=== PATIENT | female | born 1960 | race Caucasian/White ===

== ENCOUNTER → 2017-08-03 | Outpatient (CLI) | payer OTHER ==
[~2017-08-03] MED LIST: ANTIHISTAMINE; CPR500 PO; [UNRECOGNIZED DRUG - REMARK]
--- NOTE | 2017-08-05 08:13 | MAMMOGRAPHY REPORT ---
BILATERAL DIGITAL SCREENING MAMMOGRAM TOMOSYNTHESIS WITH CAD: 08/03/2017 CLINICAL HISTORY: Routine screening. Patient has no complaints. TECHNIQUE: Breast tomosynthesis in addition to standard 2D mammography was performed. Current study was also evaluated with a Computer Aided Detection (CAD) system. COMPARISON: Comparison is made to exams dated: 07/04/2007, 12/29/2006, and 12/29/2006. BREAST COMPOSITION: There are scattered areas of fibroglandular density in both breasts. FINDINGS: No suspicious mass, architectural distortion or cluster of microcalcifications is seen. IMPRESSION: ACR BI-RADS CATEGORY 1: NEGATIVE There is no mammographic evidence of malignancy bilaterally. Prior outside mammograms are currently being requested and if obtained they will be reviewed, compared to the current exam to assess for any more subtle changes, and an addendum will be made to this report. Otherwise, a 1 year screening taras mogram is recommended. The patient will receive written notification of the results. Approximately 10% of breast cancers are not detected with mammography. A negative mammographic report should not delay biopsy if a clinically suggestive mass is present. Luisana Juarez M.D. ay/:08/03/2017 15:37:03 [place] Mate: Hermila Granado, [facility] letter sent: Normal 1/2 BI-RADS Code: ACR BI-RADS Category 1: Negative
== END | disposition home or self-care (01) ==
LOC: C.MAMM 14:14
PROVIDERS: ATTEND Neuromusculoskeletal Medicine & OMM
DX: Z12.31 Encounter for screening mammogram for malignant neoplasm of breast (principal)

== ENCOUNTER 2017-08-10 14:04 | Emergency (ER) | payer OTHER ==
[~2017-08-10] VITALS: Ht 162.6 cm; Wt 97.0 kg
[2017-08-10 14:11] VITALS: TEMP 36.7; Ht 162.6 cm; Wt 97.0 kg
[2017-08-10] MEDS ORDERED: PROCHLORPERAZINE 5 MG/ML 2 ML VIAL IV STA (14:40)
[2017-08-10] MEDS ORDERED: DiphenhydrAMINE HCL 50 MG/ML VIAL IV STA (14:40)
[2017-08-10] MEDS ORDERED: OPTIRAY 320 IV PRN (14:45)
[2017-08-10 15:21] LABS: BASO % 0.4 %; BASO ABS # 0.04 K/uL (0-0.2); COMPLETE YES; HEMATOCRIT 44.1 % (37-47); IG% 0.2 %; LYMPH % 23.8 %; LYMPH ABS # 2.14 K/uL (1.2-3.4); MEAN CELL VOLUME 89.5 fL (80-100); MEAN CORPUSCULAR HEMOGLOBIN 30.4 pg (25-34); MEAN PLATELET VOLUME 10.9 fL (7.4-10.4); MONO % 7.2 %; NEUT % 67.4 %; PLATELET COUNT 253 K/uL (130-400); RED BLOOD COUNT 4.93 M/uL (4.2-5.4)
[2017-08-10 15:29] LABS: PROTHROMBIN TIME (PATIENT) 10.9 SECONDS (9.0-12.0)
[2017-08-10 15:39] LABS: BUN/CREATININE RATIO 12.6 (10-20); CALCIUM 9.1 mg/dl (8.5-10.1); CREATININE 0.84 mg/dl (0.60-1.20); POTASSIUM 4.1 mmol/L (3.5-5.1)
[2017-08-10] MEDS ORDERED: DEXAMETHASONE SOD INJ 4 MG/ML VIAL IV STA (16:50)
--- NOTE | 2017-08-10 17:12 | DIAGNOSTIC IMAGING REPORT ---
ANGIOGRAPHY HEAD COMBO CLINICAL HISTORY: 56 years-old Female presents with acute headache. COMPARISON STUDY: CT head 05/01/2009 TECHNIQUE: Unenhanced axial CT scan of the brain is performed. Subsequently, following the IV administration of 115 cc of Optiray 320, CT angiogram of the brain was performed from the skull base to the vertex. Images are reviewed in the axial, sagittal, and coronal planes. 3-D MIPS images are created and assessed. IV contrast was administered without complication. A dose lowering technique was utilized adhering to the principles of ALARA. The first set of images demonstrates suboptimal contrast opacification secondary to malfunction with the patient's IV. The exam was then repeated. CT DOSE: 796.98 mGy.cm FINDINGS: CT BRAIN: There is a large intra-axial mass of the right frontal lobe, 5.4 x 4.8 x 4.1 cm in AP, transverse and cranial caudal dimensions respectively nicely seen on image 170 of series 7. This demonstrates avid heterogeneous enhancement with prominent central neovascularity as seen on image 171 series 7. Large amount of surrounding vasogenic edema is also noted. There is 10 mm leftward midline shift with subfalcine herniation. There is partial effacement of the frontal horn, body and atria of the right lateral ventricle. No hydrocephalus. Suprasellar cistern is maintained. No acute intracranial hemorrhage or territorial ischemia identified. No calvarial fracture. Mastoid air cells and middle ear cavities are clear. Moderate ethmoid sinus disease. Soft tissues are unremarkable. Orbits are symmetric. CT ANGIOGRAM OF THE BRAIN: The imaged bilateral internal carotid arteries are patent. The bilateral anterior and middle cerebral arteries are also patent. The vertebrobasilar system and posterior cerebral arteries are widely patent. There is no aneurysm, high-grade stenosis, or proximal branch occlusion identified. Dural sinuses appear patent. IMPRESSION: Large intra-axial heterogeneously enhancing mass of the right frontal lobe measures up to 5.4 cm is present with associated extensive amount of surrounding vasogenic edema resulting in subfalcine herniation with 10 mm leftward midline shift. Mass partially effaces the right frontal horn, body and atria of the right lateral ventricle. No hydrocephalus or hemorrhage. Further evaluation with contrast-enhanced brain MRI and neurosurgical consultation recommended. The above report was generated using voice recognition software. It may contain grammatical, syntax or spelling errors. Electronically signed by: Harjinder Davila M.D. 08/10/2017 5:11 PM Dictated Date/Time: 08/10/2017 5:02 PM
[2017-08-10] MEDS ORDERED: LEVETIRACETAM IV 1,000 MG in DEXTROSE 5% 100ML 100 ML IV ONE (18:15)
--- NOTE | 2017-08-10 18:48 | EMERGENCY ROOM VISIT NOTE ---
History Report prepared by Jhonatan: Lena Robledo Under the Supervision of: Dr. Jeancarlos Liu M.D. First contact with patient: 14:30 Chief Complaint: HEADACHE Stated Complaint: HEADACHE History of Present Illness The patient is a 56 year old female who presents to the Emergency Room with complaints of a waxing and waning headache for over a month. The patient states that she wakes up every morning with a headache that improves throughout the day. Her pain is located behind her eyes. She rates her current pain as a 4/10 in severity. Her symptoms are not worsened with movement or changing positions. The patient denies any personal of family history of migraines. She denies any recent trauma or injury to her head. She denies recent falls. She denies numbness, weakness, fevers, changes in vision, nausea, and vomiting. Per , the patient has been under a lot of stress at work lately. The patient states that she has been moving slower and having a hard time focusing on things. She has also been "making dumb mistakes" like forgetting to turn the stove off or the water off. The patient went to [employer] today and was advised to come to the ED for further evaluation. Source of History: patient, spouse/significant other Onset: over 1 month ago Position: head Symptom Intensity: 4/10 Timing: waxes/wanes Modifying Factors (Worsening): other (worse in the morning) Modifying Factors (Relieving): other (improves throughout the day) Associated Symptoms: No fevers, No nausea, No vomiting, No weakness, No numbness Review of Systems See HPI for pertinent positives & negatives. A total of 10 systems reviewed and were otherwise negative. Past Medical & Surgical Medical Problems: (1) Asthma Surgical Problems: (1) History of tubal ligation Family History Cancer Diabetes mellitus FHx: gallbladder disease Heart disease Hypertension Lung disease Social History Smoking Status: Never Smoker Smokeless Tobacco Use: No Alcohol Use: occasionally Marital Status: Housing Status: lives with significant other Occupation Status: employed Allergies Coded Allergies: No Known Allergies (Unverified , /, 08/10/17) Physical Exam Vital Signs Date Time Temp Pulse Resp B/P (MAP) Pulse Ox O2 Delivery O2 Flow Rate FiO2 08/10/17 18:05 67 20 184/105 99 Room Air 08/10/17 17:14 69 08/10/17 17:05 59 20 199/71 96 Room Air 08/10/17 14:11 36.7 71 20 164/86 98 Room Air Physical Exam Constitutional: Vital signs reviewed. Eyes: Pupils are equal round reactive to light. Conjunctiva are noninjected. ENT: Pharynx is clear without erythema or exudate. Mucous membranes are moist. Neck supple without meningeal signs. Respiratory: Clear to auscultation bilaterally. Breath sounds are equal bilaterally. Cardiovascular: Regular rate and rhythm. No rubs or gallops. GI: Soft, nondistended and nontender. Bowel sounds are present. Musculoskeletal: No peripheral edema. No lower extremity tenderness. Integumentary: No cyanosis. Neurological: The patient is awake and alert. Cranial nerves II-XII are intact. Motor is 5 out of 5 all extremities. Sensation is intact to light touch all extremities. Normal speech. No pronator drift. Psychiatric: Normal affect. Medical Decision & Procedures ER Provider Diagnostic Interpretation: Radiology results as stated below per my review and the radiologist's interpretation: ANGIOGRAPHY HEAD COMBO CLINICAL HISTORY: 56 years-old Female presents with acute headache. COMPARISON STUDY: CT head 05/01/2009 TECHNIQUE: Unenhanced axial CT scan of the brain is performed. Subsequently, following the IV administration of 115 cc of Optiray 320, CT angiogram of the brain was performed from the skull base to the vertex. Images are reviewed in the axial, sagittal, and coronal planes. 3-D MIPS images are created and assessed. IV contrast was administered without complication. A dose lowering technique was utilized adhering to the principles of ALARA. The first set of images demonstrates suboptimal contrast opacification secondary to malfunction with the patient's IV. The exam was then repeated. CT DOSE: 796.98 mGy.cm FINDINGS: CT BRAIN: There is a large intra-axial mass of the right frontal lobe, 5.4 x 4.8 x 4.1 cm in AP, transverse and cranial caudal dimensions respectively nicely seen on image 170 of series 7. This demonstrates avid heterogeneous enhancement with prominent central neovascularity as seen on image 171 series 7. Large amount of surrounding vasogenic edema is also noted. There is 10 mm leftward midline shift with subfalcine herniation. There is partial effacement of the frontal horn, body and atria of the right lateral ventricle. No hydrocephalus. Suprasellar cistern is maintained. No acute intracranial hemorrhage or territorial ischemia identified. No calvarial fracture. Mastoid air cells and middle ear cavities are clear. Moderate ethmoid sinus disease. Soft tissues are unremarkable. Orbits are symmetric. CT ANGIOGRAM OF THE BRAIN: The imaged bilateral internal carotid arteries are patent. The bilateral anterior and middle cerebral arteries are also patent. The vertebrobasilar system and posterior cerebral arteries are widely patent. There is no aneurysm, high-grade stenosis, or proximal branch occlusion identified. Dural sinuses appear patent. IMPRESSION: Large intra-axial heterogeneously enhancing mass of the right frontal lobe measures up to 5.4 cm is present with associated extensive amount of surrounding vasogenic edema resulting in subfalcine herniation with 10 mm leftward midline shift. Mass partially effaces the right frontal horn, body and atria of the right lateral ventricle. No hydrocephalus or hemorrhage. Further evaluation with contrast-enhanced brain MRI and neurosurgical consultation recommended. The above report was generated using voice recognition software. It may contain grammatical, syntax or spelling errors. Electronically signed by: Harjinder Davila M.D. 08/10/2017 5:11 PM Dictated Date/Time: 08/10/2017 5:02 PM Laboratory Results 08/10/17 15:00 Red Blood Count 4.93, Mean Corpuscular Volume 89.5, Mean Corpuscular Hemoglobin 30.4, Mean Corpuscular Hemoglobin Concent 34.0, Mean Platelet Volume 10.9, Neutrophils (%) (Auto) 67.4, Lymphocytes (%) (Auto) 23.8, Monocytes (%) (Auto) 7.2, Eosinophils (%) (Auto) 1.0, Basophils (%) (Auto) 0.4, Neutrophils # (Auto) 6.06, Lymphocytes # (Auto) 2.14, Monocytes # (Auto) 0.65, Eosinophils # (Auto) 0.09, Basophils # (Auto) 0.04 08/10/17 15:00 Test 08/10/17 15:00 White Blood Count 9.00 K/uL (4.8-10.8) Red Blood Count 4.93 M/uL (4.2-5.4) Hemoglobin 15.0 g/dL (12.0-16.0) Hematocrit 44.1 % (37-47) Mean Corpuscular Volume 89.5 fL (80-100) Mean Corpuscular Hemoglobin 30.4 pg (25-34) Mean Corpuscular Hemoglobin Concent 34.0 g/dl (32-36) Platelet Count 253 K/uL (130-400) Mean Platelet Volume 10.9 fL (7.4-10.4) Neutrophils (%) (Auto) 67.4 % Lymphocytes (%) (Auto) 23.8 % Monocytes (%) (Auto) 7.2 % Eosinophils (%) (Auto) 1.0 % Basophils (%) (Auto) 0.4 % Neutrophils # (Auto) 6.06 K/uL (1.4-6.5) Lymphocytes # (Auto) 2.14 K/uL (1.2-3.4) Monocytes # (Auto) 0.65 K/uL (0.11-0.59) Eosinophils # (Auto) 0.09 K/uL (0-0.5) Basophils # (Auto) 0.04 K/uL (0-0.2) RDW Standard Deviation 47.2 fL (36.4-46.3) RDW Coefficient of Variation 14.3 % (11.5-14.5) Immature Granulocyte % (Auto) 0.2 % Immature Granulocyte # (Auto) 0.02 K/uL (0.00-0.02) Prothrombin Time 10.9 SECONDS (9.0-12.0) Prothromb Time International Ratio 1.0 (0.9-1.1) Activated Partial Thromboplast Time 25.8 SECONDS (21.0-31.0) Partial Thromboplastin Ratio 1.0 Anion Gap 5.0 mmol/L (3-11) Est Creatinine Clear Calc Drug Dose 86.6 ml/min Estimated GFR () 91.3 Estimated GFR (Non- 78.8 BUN/Creatinine Ratio 12.6 (10-20) Calcium Level 9.1 mg/dl (8.5-10.1) Laboratory results as reviewed by me. Medications Administered Medications (Trade) Dose Ordered Sig/Davon Route Start Time Stop Time Status Last Admin Dose Admin Prochlorperazine Edisylate (Compazine Inj) 10 mg NOW STAT IV 08/10/17 14:40 08/10/17 14:43 DC 08/10/17 15:25 10 MG Diphenhydramine HCl (Benadryl Inj) 50 mg NOW STAT IV 08/10/17 14:40 08/10/17 14:43 DC 08/10/17 15:25 50 MG Dexamethasone Sodium Phosphate (Decadron Inj) 10 mg NOW STAT IV 08/10/17 16:50 08/10/17 16:52 DC 08/10/17 17:18 10 MG Levetiracetam 1000 mg/Dextrose 110 ml @ 440 mls/hr ONE ONCE IV 08/10/17 18:15 08/10/17 18:29 DC 08/10/17 18:29 440 MLS/HR ED Course 1430: The patient was evaluated in room C3. A complete history and physical exam was performed. 1440: Benadryl 50 mg IV, Compazine 10 mg IV 1650: Decadron 10 mg IV 1706: The patient is resting comfortably and states that her headache has significantly approved at this time. 1804: I discussed the patient's case with her and her family. They verbalized agreement and understanding of the treatment plan. The patient will be transferred to the [place] [facility]. 1815: Ordered Levetiracetam 1000 mg/Dextrose 110 mL @ 440 mL/hr IV. 1830: I spoke with the transfer team. An ambulance will not be available for several hours. A helicopter has been contacted and will transfer the patient to the [place] ED. Medical Decision This is a 56-year-old female who presents with a headache. Differential diagnosis includes intracranial mass, intracranial hemorrhage, migraine headache , tension headache, aneurysm. I did perform a limited focused review of portions of the patient's old chart on the electronic medical record. The patient has had no recent pertinent visits to this hospital. I did evaluate the patient as noted above. IV access was established. I did treat the patient with IV Benadryl and Compazine. I did order and review the patient's blood work as noted in the electronic medical record. Her white blood cell count is not elevated. Her renal function is unremarkable. I did order a CT angiogram of the brain. I did review the images myself as well as the radiology report as described above. The patient does have a large mass in the right frontal region with significant edema causing subfalcine herniation and mass effect. I did immediately treat patient with Decadron 10 mg IV. Head of the bed was kept at 30 I did talk to the neurosurgeon rehabilitation worker at [facility] as a patient has [facility]. The neurosurgeon recommended that the patient receive 1000 mg of Keppra and be transferred as soon as possible due to the herniation. I did attempt to get an ALS ambulance but they were not available for over an hour and so I arranged for helicopter transfer. The patient was transferred via helicopter in stable condition. Medication Reconcilliation Current Medication List: was personally reviewed by me Blood Pressure Screening Patient's blood pressure: Elevated blood pressure Blood pressure disposition: Referred to PCP Consults Time Called: 1753 Consulting Physician: Dr. Barcenas -[facility] Returned Call: [phone] Barcenas of [facility]. We discussed the patient and her results. The patient will be transferred to the [place] ED. Dr. Barcenas also recommends giving the patient 1000 mg of Keppra. Impression Primary Impression: Brain mass Additional Impression: Brain herniation Critical Care I have personally spent 35 minutes of critical care time in the direct management of this patient. This includes bedside care, interpretation of diagnostic studies, and testing, discussion with consultants, patient, and family members, and other required patient management activities. This 30 minutes is in excess of all separately billable procedures. Scribe Attestation The scribe's documentation has been prepared under my direct and personally reviewed by me in its entirety. I confirm that the note above accurately reflects all work, treatment, procedures, and medical decision making performed by me. Departure Information Dispostion Transfer Acute Care Facility ([place] by air) Referrals Abilio Robbins D.OErik (PCP) Patient Instructions [facility] Problem Qualifiers
[2017-08-10 18:55] VITALS: BP 184/104; PULSE 76; O2SAT 98
== END 2017-08-10 18:55 | disposition short-term general hospital (02) ==
LOC: C.EDB 14:06 → C.EDC 18:55
DX: G93.5 Compression of brain (principal); J45.909 Unspecified asthma, uncomplicated; Z98.51 Tubal ligation status; Z80.9 Family history of malignant neoplasm, unspecified; Z83.3 Family history of diabetes mellitus; Z82.49 Family history of ischemic heart disease and other diseases of the circulatory system

== ENCOUNTER → 2017-09-22 | Outpatient (CLI) | payer OTHER ==
[~2017-09-22] MED LIST changes: -ANTIHISTAMINE; -CPR500 PO; +LEVE250T PO; +ONDA8TAB6 PO; +PROC1TAB5 PO; +TEMODAR; -[UNRECOGNIZED DRUG - REMARK]
== END | disposition home or self-care (01) ==
LOC: C.FOODA 09:49
PROVIDERS: ATTEND Internal Medicine Hematology
DX: C71.9 Malignant neoplasm of brain, unspecified (principal)

== ENCOUNTER → 2017-11-23 | Outpatient (CLI) | payer OTHER ==
[~2017-11-23] MED LIST changes: -LEVE250T PO; +ONDA-170 PO; -ONDA8TAB6 PO; +SULF800T23 PO; +TEMO1CAP5 PO; -TEMODAR
[2017-11-23 13:34] VITALS: BP 156/90; PULSE 61; TEMP 36.5; O2SAT 99
--- NOTE | 2017-11-23 14:49 | Radiation Oncology Follow-Up ---
Radiation Oncology Follow-Up Date of Visit Nov 23, 2017. Reason For Visit One-month follow-up Radiation Completion Date 10/25/17 Diagnosis (1) Glioblastoma multiforme of frontal lobe Status: Acute Onset Date: 08/12/2017 Stage: IV Permanent Comment: Severe right frontal headache Status post CT 08/10/2017 revealing a large right frontal lobe mass Status post right frontal craniotomy with gross total resection 08/12/2017 High-grade astrocytoma favoring glioblastoma multiforme Plan for combined radiation and chemotherapy. Chemotherapy comprised of Temodar Status post completion of radiation therapy October 25, 2017. She received 6000 cGy Last Edited By: Gianna Licona on Oct 31, 2017 16:05 History of Present Illness Ms. Bravo presented to the emergency Department on 08/10/2017 with the complaint of recent onset of severe right frontal headaches. These have been present for approximately 6 weeks. Patient also was experiencing some mild left arm and left leg weakness. An angiography head, was performed which revealed a large intra-axial mass of the right frontal lobe measuring 5.4 x 4.8 x 4.1 cm. There was avid heterogeneous enhancement with prominent central neovascularity and larger amounts of surrounding vasogenic edema noted. There was a 10 mm leftward midline shift with subfalcine herniation and partial effacement of the frontal, body and atrium of the right lateral ventricle. No hydrocephalus was appreciated. No acute intracranial hemorrhage or ischemia was identified. Without a neurosurgeon the patient was transferred to [facility] where they were seen by Dr. Barcenas. He ordered a CT scan of the chest abdomen and pelvis performed on 08/10/2017 which showed prominent subcarinal lymph nodes measuring 2 x 1 cm. A left ovarian cyst was noted which had been noted previously. An MRI of the brain performed on 08/10/2017 showed a 4.8 cm hemorrhagic mass noted right frontal lobe with surrounding vasogenic edema resulting in a 1.3 cm midline shift. The mass abuts and likely involves the right frontal dura. Patient was taken to the operating room on 08/12/2017 when she underwent a right frontal craniotomy. They were able to perform a gross total excision of the tumor. The pathologic tissue was evaluated and by frozen section confirmed malignant tumor. Final path was a high-grade astrocytoma favoring glioblastoma multiforme (GBM). Accession number: [id number]. Patient recovered extremely well from her surgery. Her headache has resolved as has any weakness. She was discharged promptly with metal sutures in place. A post op MRI was also performed. We will obtain both the preoperative postoperative studies for evaluation. Patient was seen while in the hospital in [place] by medical oncology and radiation oncology. The Patient Was Seen by Dr. Zack Vargas he discussed standard therapy postoperatively consisting of a course of radiation therapy to the tumor bed given concurrently with temozolomide. He noted that the patient lives in [place] and confirmed that treatment would be more convenient for the patient to be delivered at [facility]. Patient ultimately was seen by Dr. Gurmeet Oneal for discussion of the role of adjuvant treatment. He recommended temozolomide at 75 mg/m once daily to be given along with the radiation treatments for a total of 42 days. Once the combined chemoradiation has been completed she will then start on maintenance temozolomide at 150 mg/m once daily for 5 days repeating every 4 weeks for 6 cycles. We are asked to see the patient to discuss the role of adjuvant radiation. She completed combined radiation and chemotherapy October 25, 2017. She received 6000 cGy utilizing volumetric modulated arc therapy. Interim History She has been doing well over the past month. She has noted no changes of her vision. She has had no dizziness. She denies headaches. There has been no change in function of the arms or legs. She has been seen in follow-up by the neurosurgeon and neural oncologist. She has also been seen by medical oncology. Plan is for her to begin Temodar on a monthly basis. She will take this 5 days of the month. She is going to participate also in a clinical trial. She did have a recheck MRI of the brain on November 21, 2017. This was reviewed with her by Dr. Barcenas. The plan is for her to have a recheck MRI again in 3 months. Allergies Coded Allergies: Sulfamethoxazole w/Trimethoprim (Verified Allergy, Mild, rash, 09/13/17) Penicillins (Verified Allergy, Unknown, hives, 08/26/17) Scallop (Verified Allergy, Unknown, hives, 08/26/17) Home Medications Scheduled PRN Ondansetron Hcl (Zofran), 8 MG PO TID PRN for Nausea Prochlorperazine Maleate (Compazine), 1 TAB PO Q6 PRN for Nausea or Vomiting Review of Systems Gastrointestinal: Symptoms: WNL Oral: Symptoms: No Problems Respiratory: Symptoms: WNL Urinary: Symptoms: WNL Skin: Symptoms: Faint Erythema Other Skin Symptoms: scabs on incision line Physical Exam Vital Signs Date Time Temp Pulse Resp B/P (MAP) Pulse Ox O2 Delivery O2 Flow Rate FiO2 11/23/17 13:34 36.5 61 20 156/90 99 Fatigue: None General Appearance: no apparent distress Eyes: normal inspection, EOMI ENT: normal ENT inspection, hearing grossly normal, pharynx normal Respiratory/Chest: lungs clear, no respiratory distress, no accessory muscle use Cardiovascular: regular rate, rhythm, no gallop, no murmur Neurologic/Psychiatric: 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 Laboratory Laboratory Results: not applicable Pathology Pathology Results: and pertinent findings noted in HPI Imaging Imaging Studies: were reviewed, and pertinent findings noted below Additional Studies She had MRI November 21, 2017 at 611. This showed: 1. Postsurgical changes are seen with a craniotomy defect in the right frontal region. 2. A crescentic postsurgical extra-axial collection is seen superficial to the right frontal lobe adjacent to the craniotomy defect measuring up to 6 mm in diameter. This is slightly smaller than on previous study dated August 13, 2017. 3. Postsurgical cavity is seen in the right frontal lobe measuring up to 4.4 cm in diameter. This appears larger than on previous study. 4. Enhancement is seen along the periphery of the postsurgical fluid collection with a mildly nodular pattern anteriorly and posteriorly. This enhancement is less prominent than on the previous study and may be due to postsurgical change. Residual or recurrent neoplasm cannot be completely excluded. 5. Increased signal intensity is seen in the right frontal lobe adjacent to the surgical cavity on the FLAIR images which could be due to edema or gliosis. 6. A few small foci of increased signal intensity are seen in the subcortical white matter in the cerebral hemispheres at least some of which are probably due to chronic small vessel ischemia. However a few of the foci inferiorly in the right frontoparietal region appear to be more prominent on the present study than on the outside examination dated August 13, 2017. Assessment & Plan Plan: She will continue regular follow-up with the neuro-oncologist and neurosurgeon. It is planned that she will have a recheck MRI in 3 months. She is going to participate in a protocol study. She has an appointment tomorrow to be evaluated and become enrolled in the study. She will follow-up and begin Temodar on a monthly basis. We asked her to return to our office in 6 months. She may call if she has any questions or concerns in the interim. Recheck laboratory studies and MRIs per the neurosurgeon or neural oncologist. Total Time In Follow-Up I spent 20 minutes speaking to the patient and performing examination. I spent 15 minutes reviewing information and completing this note. AK Copy To Ali. Barcenas MD; Abilio Robbins D.O.
== END | disposition home or self-care (01) ==
LOC: C.ONC 13:27
PROVIDERS: ATTEND Physician Assistant Medical
DX: Z08 Encounter for follow-up examination after completed treatment for malignant neoplasm (principal); Z92.3 Personal history of irradiation; Z85.841 Personal history of malignant neoplasm of brain